=== PATIENT | female | born 1980 | race African-American/Black ===

== ENCOUNTER 2016-11-14 05:09 | Inpatient (IN) | payer OTHER ==
[2016-11-14 09:09] VITALS: BMI 27.7
--- NOTE | 2016-11-14 11:38 | HP ---
Admission [facility] Chief Complaint: REHAB TX FOR CRACK/COCAINE AND ALCOHOL DEPENDENCE Allergies/Adverse Reactions: Allergies Allergy/AdvReac Type Severity Reaction Status Date / Time No Known Allergies Allergy Verified 11/14/16 09:35 History of Present Illness: 36 Y/O AA/FEMALE WITH A HX OF ALCOHOL AND COCAINE DEPENDENCE SEEKING REHAB TX. FIRST TIME HERE. Exam Limitations: No Limitations - Ebola screening Have you traveled outside of the country in the last 21 days: No Have you had contact with anyone from an Ebola affected area: No Have you been sick,other than usual withdrawal symptoms: No Do you have a fever: No - Review of Systems Constitutional: Chills, Night Sweats EENT: reports: Blurred Vision (WEARS GLASSES), Tearing, Nose Congestion, Dental Problems (MISSING TEETH/DENTURES) Respiratory: reports: No Symptoms reported Cardiac: reports: Chest Pain, Lightheadedness GI: reports: Constipated, Rectal Bleeding (HX HEMORRHOIDS) : reports: Frequency, Urgency Musculoskeletal: reports: Muscle Pain, Other (RIGHT THIGH CRAMPING/PAIN) Integumentary: reports: No Symptoms Reported Neuro: reports: Headache, Dizziness Endocrine: reports: No Symptoms Reported Hematology: reports: No Symptoms Reported Psychiatric: reports: Orientated x3, Anxious Other Systems: Reviewed and Negative Patient History - Patient Medical History Hx Anemia: No Hx Asthma: No Hx Chronic Obstructive Pulmonary Disease (COPD): No Hx Cardiac Disorders: No Hx Hypertension: No Hx Hypercholesterolemia: No HX Cerebrovascular Accident: No Hx Seizures: No Hx Diabetes: No Hx Gastrointestinal Disorders: Yes (HX HEMORRHOIDS/CONSTIPATION/RECTAL BLEEDING) Hx Genitourinary Disorders: No Hx Sexually Transmitted Disorders: Yes (SYPHILIS/GONORRHEA) Hx Renal Disease (ESRD): No Hx Thyroid Disease: Yes (TOLD HAS ENLARGED THYROID;NEVER FOLLOWED UP.) Hx Human Immunodeficiency Virus (HIV): No (NEGATIVE HX) Hx Hepatitis C: No Hx Depression: Yes (NO CURRENT MED) Hx Suicide Attempt: No (DENIES) Hx Bipolar Disorder: No Hx Schizophrenia: No - Patient Surgical History Past Surgical History: Yes Hx Section: Yes (X 2 --2000 AND 2002) Hx Orthopedic Surgery: Yes (LEFT WRIST SX WITH SCREWS DUE TO FX AT 31 Y/O.) Other Surgical History: FX SKULL DUE TO FALL TO BRICK WALL AT 31 YRS PLD. Anesthesia Reaction: No - PPD History Previous Implant?: Yes Documented Results: Negative w/o proof Implanted On Prior R Admission?: No PPD to be Administered?: Yes - Reproductive History Patient is a Female of Child Bearing Age (11 -55 yrs old): Yes Last Menstrual Period: 10/21/16 Patient : No - Smoking Cessation Smoking history: Current every day smoker Have you smoked in the past 12 months: Yes Aproximately how many cigarettes per day: 6 Hx Chewing Tobacco Use: No Initiated information on smoking cessation: Yes 'Breaking Loose' booklet given: 11/14/16 - Substance & Tx. History Hx Alcohol Use: Yes (LIQUOR) Hx Substance Use: Yes (COCAINE) Substance Use Type: Alcohol, Cocaine Hx Substance Use Treatment: Yes (OPD TREATMENT IN [place]) - Substances Abused Alcohol Route: Oral Frequency: 1-2 times per week Amount used: 1/2 - 1 PT Age of first use: 34 Date of Last Use: 11/08/16 Crack Route: Smoking Frequency: Daily Amount used: $300 Age of first use: 25 Date of Last Use: 11/14/16 Family Disease History - Family Disease History Family Disease History: Respiratory: Son (ASTHMA), Other: Mother (HTN) Admission Physical Exam BHS - Vital Signs Vital Signs: Vital Signs - 24 hr 11/14/16 09:04 Temperature 98.2 F Pulse Rate 88 Respiratory 20 Rate Blood Pressure 119/71 - Physical General Appearance: Yes: No Apparent Distress, Irritable, Anxious HEENTM: Yes: EOMI, Normocephalic, TONY, Pharynx Normal Respiratory: Yes: Chest Non-Tender, Lungs Clear, Normal Breath Sounds, No Respiratory Distress Neck: Yes: Supple, Trachea in good position Breast: Yes: Breast Exam Deferred Cardiology: Yes: Regular Rhythm, Regular Rate, S1, S2 Abdominal: Yes: Normal Bowel Sounds, Non Tender, Soft Genitourinary: Yes: Other (N/C) Back: Yes: Within Normal Limits Musculoskeletal: Yes: full range of Motion, Gait Steady Extremities: Yes: Normal Range of Motion, Non-Tender Neurological: Yes: pool cleaner II-XII NML intact, Fully Oriented, Alert Integumentary: Yes: Dry, Warm - Diagnostic (1) Cocaine dependence, uncomplicated Current Visit: Yes Status: Chronic (2) Alcohol dependence with uncomplicated withdrawal Current Visit: Yes Status: Chronic (3) Hx of hemorrhoids Current Visit: Yes Status: Chronic (4) History of traumatic injury of head Current Visit: Yes Status: Resolved Cleared for Admission [facility] - Detox or Rehab Claeared for Rehab Admission: Yes [facility] Breath Alcohol Content Breath Alcohol Content: 0 Urine Pregancy Test - Result Urine Test Results: Negative- NO Line Present Urine Drug Screen - Results Drug Screen Negative: No Urine Drug Screen Results: MARIAJOSE-Cocaine, AMP-Amphetamines
[2016-11-14] MEDS ORDERED: diphenhydrAMINE HCL 50 MG CAPSULE PO PRN (11:59)
[2016-11-14] MEDS ORDERED: NICOTINE POLACRILEX 2 MG GUM BUC PRN (11:59)
[2016-11-14] MEDS ORDERED: LOPERAMIDE HCL 2 MG CAPSULE PO PRN (11:59)
[2016-11-14] MEDS ORDERED: guaiFENesin/D-METHORPHAN HB 10 ML UNIT-DOSE CUPS PO PRN (11:59)
[2016-11-14] MEDS ORDERED: hydrOXYzine PAMOATE 25 MG CAPSULE (FP) PO PRN (11:59)
[2016-11-14] MEDS ORDERED: IBUPROFEN 400 MG TABLET (FP) PO PRN (11:59)
[2016-11-14] MEDS ORDERED: ACETAMINOPHEN 325 MG TABLET (FP) PO PRN (11:59)
[2016-11-14] MEDS ORDERED: MAG HYDROX/AL HYDROX/SIMETH 30 ML UNIT-DOSE CUP PO PRN (11:59)
[2016-11-14] MEDS ORDERED: MAGNESIUM HYDROX 2400MG/30ML ORAL SUSPENSION 30 ML CUP PO PRN (11:59)
[2016-11-14] MEDS ORDERED: MENTHOL/PHENOL 1 EACH UD MM PRN (11:59)
[2016-11-14] MEDS ORDERED: P-EPHED 60MG/TRIPROLIDI 2.5MG TABLET PO PRN (11:59)
[2016-11-14] MEDS ORDERED: MAGNESIUM CITRATE 300 ML BOTTLE PO PRN (11:59)
[2016-11-14] MEDS: DOCUSATE SODIUM 100 MG CAPSULE (FP) PO SCH ×2 (14:50→22:12)
[2016-11-14] MEDS: NICOTINE 14 MG/24 HOURS TOPICAL PATCH TD SCH (14:51)
[2016-11-14 14:59] LABS: MCH 27.9 pg (25.7-33.7); MCHC 33.2 g/dl (32.0-36.0); MEAN CELL VOLUME 84.1 fl (80-96); MEAN PLT VOLUME 9.4 fl (7.5-11.1); PLATELET COUNT 119 K/MM3 (134-434); RDW 13.7 % (11.6-15.6); WHITE BLOOD COUNT 3.2 K/mm3 (4.0-10.0)
[2016-11-14 15:21] LABS: ALBUMIN 3.5 g/dl (3.4-5.0); ALK PHOS 68 U/L (45-117); ANION GAP 9 (8-16); BILIRUBIN,TOTAL 0.3 mg/dL (0.2-1.0); CALCIUM 8.8 mg/dL (8.5-10.1); CO2 29 mmol/L (21-32); CREATININE 0.8 mg/dL (0.55-1.02); GLUCOSE,RANDOM 78 mg/dL (74-106); SGOT/AST 19 U/L (15-37); SGPT/ALT 20 U/L (12-78)
--- NOTE | 2016-11-14 16:24 | EKG ---
Test Reason : Blood Pressure : / mmHG Vent. Rate : 071 BPM Atrial Rate : 277 BPM P-R Int : 000 ms QRS Dur : 076 ms QT Int : 342 ms P-R-T Axes : 032 009 -52 degrees QTc Int : 371 ms POOR DATA QUALITY, INTERPRETATION MAY BE ADVERSELY AFFECTED SINUS RHYTHM ABNORMAL ECG Confirmed by KATARZYNA GREENE, KIM ([id number]) on 11/14/2016 4:24:09 PM Referred By: Shweta Brown Confirmed By:KIM COLÓN MD
[2016-11-14 16:40] LABS: URINE APPEARANCE SLCLOUDY; URINE BILIRUBIN NEGATIVE (NEGATIVE); URINE BLOOD NEGATIVE (NEGATIVE); URINE COLOR DKYELLOW; URINE GLUCOSE (UA) NEGATIVE (NEGATIVE); URINE KETONE TRACE (NEGATIVE); URINE NITRITE NEGATIVE (NEGATIVE); URINE UROBILINOGEN NEGATIVE E.U./dl (0.2-1.0)
[2016-11-14 16:43] LABS: URINE LEUK ESTERASE TRACE (NEGATIVE); URINE PROTEIN 1+ (NEGATIVE)
[2016-11-14] MEDS: POTASSIUM CHLORIDE TABS 20 MEQ TABLET.ER (FP) PO SCH ×2 (17:14→22:12)
[2016-11-14 18:04] LABS: URINE BACTERIA FEW /hpf (NONE SEEN); URINE MUCUS MANY; URINE RBC 1 /hpf (0-3); URINE WBC 11 /hpf (3-5)
[2016-11-14] MEDS: THIAMINE HCL 100 MG TABLET (FP) PO SCH (22:13)
[2016-11-15] MEDS: DOCUSATE SODIUM 100 MG CAPSULE (FP) PO SCH ×3 (06:50→22:04)
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
[2016-11-15] MEDS: PRENATAL VITAMINS W/ FOLIC ACID TABLET (FP) PO SCH (10:01)
[2016-11-15] MEDS: NICOTINE 14 MG/24 HOURS TOPICAL PATCH TD SCH (10:02)
[2016-11-15 14:55] LABS: HIV 1 AGp24 NEGATIVE
[2016-11-15 15:12] LABS: HIV 1 & 2 AB PRELIMINARY POSITIVE
--- NOTE | 2016-11-15 15:20 | EKG ---
Test Reason : Blood Pressure : / mmHG Vent. Rate : 078 BPM Atrial Rate : 078 BPM P-R Int : 176 ms QRS Dur : 078 ms QT Int : 368 ms P-R-T Axes : 022 003 -09 degrees QTc Int : 419 ms NORMAL SINUS RHYTHM SEPTAL INFARCT , AGE UNDETERMINED POOR R WAVE PROGRESSION NONSPECIFIC ST ABNORMALITY ABNORMAL ECG WHEN COMPARED WITH ECG OF 14-NOV-2016 15:14, NO SIGNIFICANT CHANGE WAS FOUND Confirmed by TALAT FRANK MD ([id number]) on 11/15/2016 3:19:45 PM Referred By: Shweta Brown Confirmed By:TALAT FRANK MD
[2016-11-15] MEDS: POTASSIUM CHLORIDE TABS 20 MEQ TABLET.ER (FP) PO SCH (17:47)
[2016-11-15] MEDS: THIAMINE HCL 100 MG TABLET (FP) PO SCH (22:04)
[2016-11-15] MEDS: traZODone HCL 100 MG TABLET (FP) PO SCH (22:05)
[2016-11-15] MEDS ORDERED: POTASSIUM CHLORIDE ORAL LIQUID 20 MEQ/15 ML PO SCH (22:45)
--- NOTE | 2016-11-15 22:50 | PN ---
[facility] Progress Note Note: RECEIVED PHARMACIST CALL PATIENT HAD TWO DOSES OF k+ SUPPLEMENT FOR 2.9 k+ ORDER k+ SUPPLEMENT LIQUID 20 MEQ BID X 5 DAYS REPEAT LAB IN 6TH DAY CONTINUE REHAB
[2016-11-16] MEDS: DOCUSATE SODIUM 100 MG CAPSULE (FP) PO SCH ×3 (06:26→22:15)
[2016-11-16] MEDS: PRENATAL VITAMINS W/ FOLIC ACID TABLET (FP) PO SCH (10:03)
[2016-11-16] MEDS: NICOTINE 14 MG/24 HOURS TOPICAL PATCH TD SCH (10:04)
[2016-11-16] MEDS: POTASSIUM CHLORIDE ORAL LIQUID 20 MEQ/15 ML PO SCH ×2 (10:31→22:16)
[2016-11-16] MEDS ORDERED: PT OWN MED DRAWER 7, Y5N ONE ×2 (14:16→19:35)
[2016-11-16] MEDS: traZODone HCL 100 MG TABLET (FP) PO SCH (22:15)
[2016-11-16] MEDS: THIAMINE HCL 100 MG TABLET (FP) PO SCH (22:16)
[2016-11-17] MEDS: DOCUSATE SODIUM 100 MG CAPSULE (FP) PO SCH ×2 (06:31→13:23)
[2016-11-17 06:48] VITALS: BP 147/80; PULSE 79; TEMP 98.6
[2016-11-17] MEDS: NICOTINE 14 MG/24 HOURS TOPICAL PATCH TD SCH (09:57)
[2016-11-17] MEDS: PRENATAL VITAMINS W/ FOLIC ACID TABLET (FP) PO SCH (09:57)
[2016-11-17] MEDS: POTASSIUM CHLORIDE ORAL LIQUID 20 MEQ/15 ML PO SCH (09:57)
--- NOTE | 2016-11-17 19:27 | PN ---
S Progress Note Note: called by nurse stated patient did not want to complete treatment due to personal emergency about her apartment,did not want to wait,seen by counselor on the unit stated by nurse,signed release amsumaya,psychiatrist midwife practitioner notified by nurse,nursing lubrication supervisor called by unit nurse
== END 2016-11-17 18:05 | disposition left against medical advice (07) | DRG 770 ==
LOC: YASAS 05:09 → Y3W 11:17
PROVIDERS: ADMIT Psychiatry & Neurology Psychiatry; ATTEND Psychiatry & Neurology Psychiatry
PROC: HZ42ZZZ Group Counseling for Substance Abuse Treatment, Cognitive-Behavioral (ICD-10-PCS; principal; 2016-11-17)
DX: F10.230 Alcohol dependence with withdrawal, uncomplicated (principal); F14.20 Cocaine dependence, uncomplicated; F17.210 Nicotine dependence, cigarettes, uncomplicated; F19.24 Other psychoactive substance dependence with psychoactive substance-induced mood disorder; K64.8 Other hemorrhoids; Z87.828 Personal history of other (healed) physical injury and trauma
CPT/HCPCS: 36415; 80053; 81003; 81015; 85027; 85660; 86593; 87389; 93005; 93010

== ENCOUNTER 2017-06-10 18:43 | Inpatient (IN) | payer OTHER ==
[2017-06-10 20:56] VITALS: BMI 25.9
--- NOTE | 2017-06-10 21:43 | HP ---
CIWA Score - CIWA Score Nausea/Vomitin-Mild Nausea/No Vomiting Muscle Tremors: 2 Anxiety: 3 Agitation: 3 Paroxysmal Sweats: 2 Orientation: 1-Uncertain about Date Tacttile Disturbances: 1-Very Mild Itch/Numbness Auditory Disturbances: 1-Very Mild Visual Disturbances: 1-Very Mild Sensitivity Headache: 0-None Present CIWA-Ar Total Score: 15 Admission ROS BHS - HPI Chief Complaint: WITHDRAWAL SYMPTOMS Allergies/Adverse Reactions: Allergies Allergy/AdvReac Type Severity Reaction Status Date / Time No Known Allergies Allergy Verified 11/14/16 09:35 History of Present Illness: 37 Y.O. FEMALE WITH DRUG AND ALCOHOL DEPENDENCE IS HERE SEEKING DETOX. SHE REPORTS SHE HAS NEVER BEEN TO DETOX BUT DID GO TO REHAB IN 11/14/16, HOWEVER SHE LEFT AMA AFTER TWO DAYS. LONGEST PERIOD SOBER HAS BEEN 5 YEARS AND STATES HE RELAPSED 1 YEAR AGO. Exam Limitations: No Limitations - Ebola screening Have you traveled outside of the country in the last 21 days: No (N) Have you had contact with anyone from an Ebola affected area: No Have you been sick,other than usual withdrawal symptoms: No Do you have a fever: No - Review of Systems Constitutional: Chills, Loss of Appetite, Night Sweats, Changes in sleep EENT: reports: Tearing Respiratory: reports: Cough Cardiac: reports: No Symptoms Reported GI: reports: Rectal Bleeding (H/O Hemorrhoid) : reports: No Symptoms Reported Musculoskeletal: reports: Joint Pain Integumentary: reports: No Symptoms Reported Neuro: reports: No Symptoms reported Endocrine: reports: No Symptoms Reported Hematology: reports: No Symptoms Reported Psychiatric: reports: Mood/Affect Appropiate, Anxious, Depressed Other Systems: Reviewed and Negative Patient History - Patient Medical History Hx Anemia: No Hx Asthma: No Hx Chronic Obstructive Pulmonary Disease (COPD): No Hx Cancer: No Hx Cardiac Disorders: No Hx Congestive Heart Failure: No Hx Hypertension: No Hx Hypercholesterolemia: No Hx Pacemaker: No HX Cerebrovascular Accident: No Hx Seizures: No Hx Dementia: No Hx Diabetes: No Hx Gastrointestinal Disorders: No Hx Liver Disease: No Hx Genitourinary Disorders: No Hx Sexually Transmitted Disorders: No Hx Renal Disease (ESRD): No Hx Thyroid Disease: Yes (TOLD HAS ENLARGED THYROID;NEVER FOLLOWED UP.) Hx Human Immunodeficiency Virus (HIV): Yes (DX: 2017) Hx Hepatitis C: No Hx Depression: Yes Hx Suicide Attempt: Yes (H/O SI ) Hx Bipolar Disorder: No Hx Schizophrenia: No - Patient Surgical History Past Surgical History: Yes Hx Section: Yes (X 2 --2000 AND 2002) Hx Orthopedic Surgery: Yes (LEFT WRIST SX WITH SCREWS DUE TO FX AT 31 Y/O.) Other Surgical History: FX SKULL DUE TO FALL TO BRICK WALL AT 31 YRS PLD. Anesthesia Reaction: No - PPD History Previous Implant?: Yes Documented Results: Negative w/proof Implanted On Prior R Admission?: Yes Date: 11/16/16 PPD to be Administered?: No - Reproductive History Patient is a Female of Child Bearing Age (11 -55 yrs old): Yes Last Menstrual Period: 05/16/17 Patient : No - Smoking Cessation Smoking history: Current every day smoker Have you smoked in the past 12 months: Yes Aproximately how many cigarettes per day: 6 Hx Chewing Tobacco Use: No Initiated information on smoking cessation: Yes 'Breaking Loose' booklet given: 06/10/17 - Substance & Tx. History Hx Alcohol Use: Yes Hx Substance Use: Yes Substance Use Type: Alcohol, Cocaine Hx Substance Use Treatment: Yes (REHAB: 11/2016; NEVER BEEN TO DETOX ) - Substances Abused Alcohol Route: Oral Frequency: Daily Amount used: 20 CANS OF 20 OZ OF BEER; 1 PINT OF LIQUOR Age of first use: 15 Date of Last Use: 06/10/17 Cocaine Route: Smoking Frequency: 3-6 times per week Amount used: $500 Age of first use: 29 Date of Last Use: 06/10/17 Family Disease History - Family Disease History Family Disease History: Heart Disease: Mother (HTN, stroke), Respiratory: Son ( ASTHMA), Other: Mother, Brother (HIV) Admission Physical Exam BHS - Vital Signs Vital Signs: Vital Signs - 24 hr 06/10/17 20:51 Temperature 96.7 F L Pulse Rate 103 H Respiratory 18 Rate Blood Pressure 120/59 - Physical General Appearance: Yes: Disheveled, Alcohol on Breath, Sweating, Anxious HEENTM: Yes: Hearing grossly Normal, Normocephalic, Normal Voice Respiratory: Yes: Chest Non-Tender, Lungs Clear, Normal Breath Sounds, No Respiratory Distress, No Accessory Muscle Use Neck: Yes: No masses,lesions,Nodules, Trachea in good position Breast: Yes: Breast Exam Deferred Cardiology: Yes: Regular Rhythm, Tachycardia Abdominal: Yes: Normal Bowel Sounds, Non Tender, Flat, Soft Genitourinary: Yes: Vaginal Discharge Back: Yes: Normal Inspection Musculoskeletal: Yes: Back pain Extremities: Yes: Normal Capillary Refill, Normal Inspection, Normal Range of Motion, Non-Tender Neurological: Yes: Alert, Motor Strength 5/5, Normal Mood/Affect, Normal Response Integumentary: Yes: Rash Lymphatic: Yes: Within Normal Limits - Diagnostic (1) Human immunodeficiency virus (HIV) disease Current Visit: Yes Status: Chronic Comment: 12/05/16 - pt left w/o being seen -on [place], [place] 1 tab po daily; discussed medical sales consultant, se, and ae, adherence , benefits/goals of tx, reporting se/ae of meds, safe sex, condom use, importance of f/u and monitoring -CD4 < 200 - plan to start bactrim ds 3 x wk - pt recently started psych meds, starting ARV now, and tx for trich - will start bactrim next visit to ensure tolerating current meds (2) Nicotine dependence Current Visit: Yes Status: Chronic Comment: brief discussion of smoking cessation; f/u next visit (3) Alcohol dependence with uncomplicated withdrawal Current Visit: Yes Status: Chronic (4) Cocaine dependence, uncomplicated Current Visit: Yes Status: Chronic Comment: continue f/u in [place] (5) Hx of hemorrhoids Current Visit: Yes Status: Chronic Comment: abnormal rectal exam - f/u next visit, colon/rectal referral (6) Pruritic rash Current Visit: Yes Status: Acute Cleared for Admission [facility] - Detox or Rehab [facility] Level of Care: Medically Managed Detox Regimen/Protocol: Librium [facility] Breath Alcohol Content Breath Alcohol Content: 0.072 Urine Pregancy Test - Result Urine Test Results: Negative- NO Line Present Urine Drug Screen - Results Drug Screen Negative: No Urine Drug Screen Results: MARIAJOSE-Cocaine
[2017-06-10] MEDS ORDERED: guaiFENesin/D-METHORPHAN HB 10 ML UNIT-DOSE CUPS PO PRN (22:06)
[2017-06-10] MEDS ORDERED: P-EPHED 60MG/TRIPROLIDI 2.5MG TABLET PO PRN (22:06)
[2017-06-10] MEDS ORDERED: NICOTINE POLACRILEX 2 MG GUM BC PRN (22:06)
[2017-06-10] MEDS ORDERED: chlordiazePOXIDE HCL 25 MG CAPSULE PO ONE (22:06)
[2017-06-10] MEDS ORDERED: MENTHOL/PHENOL 1 EACH UD MM PRN (22:06)
[2017-06-10] MEDS ORDERED: MAGNESIUM CITRATE 300 ML BOTTLE PO PRN (22:06)
[2017-06-10] MEDS ORDERED: diphenhydrAMINE HCL 50 MG CAPSULE PO PRN (22:06)
[2017-06-10] MEDS ORDERED: MAG HYDROX/AL HYDROX/SIMETH 30 ML UNIT-DOSE CUP PO PRN (22:06)
[2017-06-10] MEDS ORDERED: IBUPROFEN 400 MG TABLET (FP) PO PRN (22:06)
[2017-06-10] MEDS ORDERED: LOPERAMIDE HCL 2 MG CAPSULE PO PRN (22:06)
[2017-06-10] MEDS ORDERED: MAGNESIUM HYDROX 2400MG/30ML ORAL SUSPENSION 30 ML CUP PO PRN (22:06)
[2017-06-10] MEDS ORDERED: ACETAMINOPHEN 325 MG TABLET (FP) PO PRN (22:06)
[2017-06-10] MEDS ORDERED: hydrOXYzine PAMOATE 50 MG CAPSULE (FP) PO PRN (22:06)
[2017-06-10] MEDS ORDERED: PERMETHRIN 5% TOPICAL CREAM 60 GM TUBE TP ONE (22:14)
[2017-06-10] MEDS ORDERED: WITCH HAZEL 50% (TUCKS) 40 PAD/JAR PAD TP PRN (22:38)
[2017-06-11 01:35] LABS: URINE APPEARANCE CLOUDY; URINE BILIRUBIN NEGATIVE (NEGATIVE); URINE BLOOD 1+ (NEGATIVE); URINE COLOR YELLOW; URINE GLUCOSE (UA) NEGATIVE (NEGATIVE); URINE KETONE NEGATIVE (NEGATIVE); URINE NITRITE NEGATIVE (NEGATIVE); URINE PROTEIN NEGATIVE (NEGATIVE); URINE UROBILINOGEN NEGATIVE mg/dL (0.2-1.0)
[2017-06-11 01:38] LABS: URINE LEUK ESTERASE 3+ (NEGATIVE)
[2017-06-11 01:45] LABS: URINE BACTERIA MODERATE /hpf (NONE SEEN); URINE MUCUS RARE; URINE RBC 11 /hpf (0-3); URINE WBC 51 /hpf (3-5)
[2017-06-11] MEDS: chlordiazePOXIDE HCL 25 MG CAPSULE PO SCH ×5 (05:27→22:43)
[2017-06-11] MEDS ORDERED: ZOLPIDEM TARTRATE 5 MG TABLET PO PRN (07:54)
--- NOTE | 2017-06-11 07:59 | CONSULT ---
[facility] Psychiatric Consult - Data Date of interview: 06/11/17 Admission source: [facility] Identifying data: This is 37 years old female with no psychiatric hospitalization history intoxicated with : Alcohol and Cocaine Substance Abuse History: Urine Drug Screen Results: MARIAJOSE-Cocaine. - Smoking Cessation. Smoking history: Current every day smoker. Have you smoked in the past 12 months: Yes. Aproximately how many cigarettes per day: 6. Hx Chewing Tobacco Use: No. Initiated information on smoking cessation: Yes. 'Breaking Loose' booklet given: 06/10/17. - Substance & Tx. History. Hx Alcohol Use: Yes. Hx Substance Use: Yes. Substance Use Type: Alcohol, Cocaine. Hx Substance Use Treatment: Yes (REHAB: 11/2016; NEVER BEEN TO DETOX ). - Substances Abused. Alcohol. Route: Oral. Frequency: Daily. Amount used: 20 CANS OF 20 OZ OF BEER; 1 PINT OF LIQUOR. Age of first use: 15. Date of Last Use: 06/10/17. Cocaine. Route: Smoking. Frequency: 3-6 times per week. Amount used: $500. Age of first use: 29. Date of Last Use: 06/10/17 Medical History: HIV, Hemorrhoids history, Head trauma history Psychiatric History: Patoent reprots history of anxiety and insomnia, reprots taking prior to admission: Ambien 10mg pom qhs. Zoloft 100mg poqd Physical/Sexual Abuse/Trauma History: Ambien 10mg pom qhs. Zoloft 100mg poqd Additional Comment: Urine Drug Screen Results: MARIAJOSE-Cocaine Mental Status Exam - Mental Status Exam Alert and Oriented to: Person Cognitive Function: Fair Patient Appearance: Unkempt Mood: Sad Affect: Flat Patient Behavior: Talkative Speech Pattern: Appropriate Voice Loudness: Normal Thought Process: Goal Oriented Thought Disorder: Being Controlled Hallucinations: Denies Suicidal Ideation: Denies Homicidal Ideation: Denies Insight/Judgement: Fair Sleep: Difficulty falling asleep Appetite: Weight loss Muscle strength/Tone: Mild Hypotonicity Gait/Station: Shuffling Additional Comments: Ambien 10mg pom qhs. Zoloft 100mg poqd Psychiatric Findings - Problem List ([place] 1, 2,3) (1) Alcohol dependence with uncomplicated withdrawal Current Visit: Yes Status: Chronic (2) Cocaine dependence, uncomplicated Current Visit: Yes Status: Chronic Comment: continue f/u in [place] (3) Nicotine dependence Current Visit: Yes Status: Chronic Comment: brief discussion of smoking cessation; f/u next visit (4) Drug-induced mood disorder Current Visit: Yes Status: Acute - Initial Treatment Plan Initial Treatment Plan: Ambien 10mg pom qhs. Zoloft 100mg poqd
--- NOTE | 2017-06-11 09:54 | EKG ---
Test Reason : Blood Pressure : / mmHG Vent. Rate : 087 BPM Atrial Rate : 087 BPM P-R Int : 178 ms QRS Dur : 068 ms QT Int : 392 ms P-R-T Axes : 067 020 023 degrees QTc Int : 471 ms NORMAL SINUS RHYTHM LOW VOLTAGE QRS SEPTAL INFARCT (CITED ON OR BEFORE 14-NOV-2016) ABNORMAL ECG WHEN COMPARED WITH ECG OF 14-NOV-2016 21:17, NONSPECIFIC T WAVE ABNORMALITY, IMPROVED IN INFERIOR LEADS NONSPECIFIC T WAVE ABNORMALITY NO LONGER EVIDENT IN LATERAL LEADS QT HAS LENGTHENED Confirmed by MANJEET GREENE, CONCHIS ([id number]) on 06/11/2017 9:53:35 AM Referred By: Confirmed By:CONCHIS BURROUGHS MD
[2017-06-11 10:05] LABS: MCH 26.2 pg (25.7-33.7); MCHC 32.3 g/dl (32.0-36.0); MEAN CELL VOLUME 81.2 fl (80-96); MEAN PLT VOLUME 9.2 fl (7.5-11.1); PLATELET COUNT 114 K/MM3 (134-434); RDW 15.4 % (11.6-15.6)
[2017-06-11 10:14] LABS: WHITE BLOOD COUNT 1.8 K/mm3 (4.0-10.0)
[2017-06-11] MEDS: NICOTINE 14 MG/24 HOURS TOPICAL PATCH TD SCH (10:19)
[2017-06-11] MEDS: PRENATAL VITAMINS W/ FOLIC ACID TABLET (FP) PO SCH (10:19)
[2017-06-11] MEDS: SERTRALINE HCL 50 MG TABLET (FP) PO SCH (10:19)
--- NOTE | 2017-06-11 10:25 | PN ---
[facility] CIWA - CIWA Score Nausea/Vomitin Muscle Tremors: 3 Anxiety: 3 Agitation: 2 Paroxysmal Sweats: 1-Minimal Palms Moist Orientation: 0-Oriented Tacttile Disturbances: 1-Very Mild Itch/Numbness Auditory Disturbances: 1-Very Mild Visual Disturbances: 1-Very Mild Sensitivity Headache: 2-Mild CIWA-Ar Total Score: 17 BHS Progress Note (SOAP) Subjective: ALERT,IRRITABLE,ANXIOUS,INTERRUPTED SLEEP,TREMOR Objective: 06/11/17 10:20 Vital Signs Temperature 99.7 F H 06/11/17 06:10 Pulse Rate 87 06/11/17 06:10 Respiratory Rate 18 06/11/17 06:10 Blood Pressure 125/65 06/11/17 06:10 O2 Sat by Pulse Oximetry (%) EKG NSR,LOW VOLTAGE NO CHEST PAIN,NO SOB,NO DIZZINESS Laboratory Last Values WBC 1.8 K/mm3 (4.0-10.0) L* D 06/11/17 07:00 RBC 3.80 M/mm3 (3.60-5.2) 06/11/17 07:00 Hgb 10.0 GM/dL (10.7-15.3) L D 06/11/17 07:00 Hct 30.9 % (32.4-45.2) L D 06/11/17 07:00 MCV 81.2 fl (80-96) 06/11/17 07:00 MCH 26.2 pg (25.7-33.7) 06/11/17 07:00 MCHC 32.3 g/dl (32.0-36.0) 06/11/17 07:00 RDW 15.4 % (11.6-15.6) D 06/11/17 07:00 Plt Count 114 K/MM3 (134-434) L D 06/11/17 07:00 MPV 9.2 fl (7.5-11.1) 06/11/17 07:00 Urine Color Yellow 06/10/17 23:22 Urine Appearance Cloudy 06/10/17 23:22 Urine pH 6.0 (5.0-8.0) 06/10/17 23:22 Ur Specific [place] 1.010 (1.005-1.025) 06/10/17 23:22 Urine Protein Negative (NEGATIVE) 06/10/17 23:22 Urine Glucose (UA) Negative (NEGATIVE) 06/10/17 23:22 Urine Ketones Negative (NEGATIVE) 06/10/17 23:22 Urine Blood 1+ (NEGATIVE) H 06/10/17 23:22 Urine Nitrite Negative (NEGATIVE) 06/10/17 23:22 Urine Bilirubin Negative (NEGATIVE) 06/10/17 23:22 Urine Urobilinogen Negative mg/dL (0.2-1.0) 06/10/17 23:22 Urine RBC 11 /hpf (0-3) 06/10/17 23:22 Urine WBC 51 /hpf (3-5) 06/10/17 23:22 Ur Epithelial Cells Many /hpf (FEW) 06/10/17 23:22 Urine Bacteria Moderate /hpf (NONE SEEN) 06/10/17 23:22 Urine Mucus Rare 06/10/17 23:22 LABS PENDING Assessment: 06/11/17 10:23 WITHDRAWAL SYMPTOM Plan: CONTINUE DETOX,PANCYTOPENIA PROBABLY RELATED TO HIV AND ALCOHOL DEPENDENCE WILL REPEAT CBC IN AM FERROUS SULFATE 325 MGS PO BID,ENSURE, REPEAT UA TODAY,ENCOURAGE ORAL FLUID
[2017-06-11] MEDS: ABACAVIR SULFATE 300 MG TABLET PO SCH (11:00)
[2017-06-11] MEDS: FERROUS SO4 325 MG TABLET (FP) PO SCH ×2 (11:00→22:43)
[2017-06-11 11:04] LABS: ALBUMIN 2.7 g/dl (3.4-5.0); ALK PHOS 61 U/L (45-117); ANION GAP 9 (8-16); BILIRUBIN,TOTAL 0.7 mg/dL (0.2-1.0); CALCIUM 8.3 mg/dL (8.5-10.1); CO2 27 mmol/L (21-32); CREATININE 0.7 mg/dL (0.55-1.02); GLUCOSE,RANDOM 86 mg/dL (74-106); SGOT/AST 56 U/L (15-37); SGPT/ALT 55 U/L (12-78); TOT PROT 6.3 g/dl (6.4-8.2)
[2017-06-11 13:08] LABS: PLATELET ESTIMATE DECREASED (NORMAL)
[2017-06-11 13:09] LABS: TOTAL CELLS COUNTED 100
[2017-06-11] MEDS ORDERED: ONDANSETRON *ODT* 4 MG TABLET SL ONE (18:00)
[2017-06-11] MEDS: chlordiazePOXIDE HCL 25 MG CAPSULE PO PRN (18:53)
[2017-06-11] MEDS ORDERED: ZOLPIDEM TARTRATE 10 MG TABLET (PARK CARE ONLY) PO PRN (22:00)
[2017-06-11] MEDS: THIAMINE HCL 100 MG TABLET (FP) PO SCH (22:43)
[2017-06-12] MEDS: chlordiazePOXIDE HCL 25 MG CAPSULE PO SCH ×3 (06:40→17:46)
[2017-06-12 09:55] LABS: MCH 26.1 pg (25.7-33.7); MCHC 32.2 g/dl (32.0-36.0); MEAN CELL VOLUME 80.9 fl (80-96); MEAN PLT VOLUME 9.2 fl (7.5-11.1); PLATELET COUNT 116 K/MM3 (134-434); RDW 15.1 % (11.6-15.6)
--- NOTE | 2017-06-12 09:58 | PN ---
S CIWA - CIWA Score Nausea/Vomitin Muscle Tremors: 3 Anxiety: 3 Agitation: 2 Paroxysmal Sweats: 1-Minimal Palms Moist Orientation: 0-Oriented Tacttile Disturbances: 1-Very Mild Itch/Numbness Auditory Disturbances: 1-Very Mild Visual Disturbances: 0-None Headache: 2-Mild CIWA-Ar Total Score: 16 BHS Progress Note (SOAP) Subjective: ALERT,IRRITABLE,ANXIOUS,FEEL DEPRESS,INTERRUPTED SLEEP,ITCHING RASH Objective: 06/12/17 09:55 Vital Signs Temperature 98.1 F 06/12/17 06:21 Pulse Rate 75 06/12/17 06:21 Respiratory Rate 16 06/12/17 06:21 Blood Pressure 115/69 06/12/17 06:21 O2 Sat by Pulse Oximetry (%) Assessment: 06/12/17 09:56 WITHDRAWAL SYMPTOM Plan: CONTINUE DETOX,REPEAT CBC PENDING,AVEENO SOAP,LIDEX OINTMENT BID,PSYCHIATRIC EVALUATION FOR DEPRESSION
[2017-06-12] MEDS ORDERED: COLLOIDAL OATMEAL 1 BAR EACH TP PRN (09:59)
[2017-06-12] MEDS ORDERED: FLUOCINONIDE 0.05% TOP OINT (60 GM TUBE) TP SCH (10:00)
[2017-06-12 10:02] LABS: WHITE BLOOD COUNT 1.5 K/mm3 (4.0-10.0)
[2017-06-12] MEDS: ABACAVIR SULFATE 300 MG TABLET PO SCH (10:13)
[2017-06-12] MEDS: PRENATAL VITAMINS W/ FOLIC ACID TABLET (FP) PO SCH (10:13)
[2017-06-12] MEDS: SERTRALINE HCL 50 MG TABLET (FP) PO SCH (10:13)
[2017-06-12] MEDS: FERROUS SO4 325 MG TABLET (FP) PO SCH ×2 (10:13→22:10)
[2017-06-12] MEDS: FLUOCINONIDE 0.05% TOP OINT (15 GM TUBE) TP SCH ×2 (11:42→22:09)
[2017-06-12] MEDS: NICOTINE 14 MG/24 HOURS TOPICAL PATCH TD SCH (11:45)
[2017-06-12] MEDS: chlordiazePOXIDE 5 MG CAPSULE PO SCH (22:10)
[2017-06-12] MEDS: THIAMINE HCL 100 MG TABLET (FP) PO SCH (22:10)
[2017-06-13 00:18] LABS: URINE APPEARANCE SLCLOUDY; URINE BILIRUBIN NEGATIVE (NEGATIVE); URINE BLOOD NEGATIVE (NEGATIVE); URINE COLOR LTYELLOW; URINE GLUCOSE (UA) NEGATIVE (NEGATIVE); URINE KETONE NEGATIVE (NEGATIVE); URINE LEUK ESTERASE NEGATIVE (NEGATIVE); URINE NITRITE NEGATIVE (NEGATIVE); URINE PROTEIN NEGATIVE (NEGATIVE); URINE UROBILINOGEN NEGATIVE mg/dL (0.2-1.0)
[2017-06-13] MEDS: chlordiazePOXIDE 5 MG CAPSULE PO SCH ×3 (05:01→17:31)
[2017-06-13] MEDS: NICOTINE 14 MG/24 HOURS TOPICAL PATCH TD SCH (10:00)
[2017-06-13] MEDS: FLUOCINONIDE 0.05% TOP OINT (15 GM TUBE) TP SCH ×2 (10:00→23:08)
--- NOTE | 2017-06-13 10:02 | PN ---
S Progress Note (SOAP) Subjective: alert,irritable,anxious,interrupted sleep Objective: 06/13/17 10:01 Vital Signs Temperature 98.1 F 06/13/17 06:00 Pulse Rate 74 06/13/17 06:00 Respiratory Rate 18 06/13/17 06:00 Blood Pressure 119/70 06/13/17 06:00 O2 Sat by Pulse Oximetry (%) Assessment: 06/13/17 10:01 withdrawal symptom Plan: continue detox,discharge in am
[2017-06-13] MEDS: SERTRALINE HCL 50 MG TABLET (FP) PO SCH (14:51)
[2017-06-13] MEDS: PRENATAL VITAMINS W/ FOLIC ACID TABLET (FP) PO SCH (14:51)
[2017-06-13] MEDS: FERROUS SO4 325 MG TABLET (FP) PO SCH ×2 (14:52→23:07)
[2017-06-13] MEDS: ABACAVIR SULFATE 300 MG TABLET PO SCH (14:52)
[2017-06-13] MEDS: chlordiazePOXIDE HCL 25 MG CAPSULE PO PRN (14:54)
--- NOTE | 2017-06-13 17:35 | PN ---
Psychiatric Progress Note Vital Signs: Vital Signs Period Temp Pulse Resp BP Sys/[place] Pulse Ox Last 24 Hr 96.3 F-98.4 F 74-105 18-20 110-125/60-74 Date of Session: 06/13/17 Chief Complaint:: " I want to kill myself.Nobody is helping me." HPI: Day 4 of detox treatment for alcohol and cocaine dependence.Hospital course was uneventful until the patient got informed of her imminent discharge ( scheduled for 06/14/17).Became symptomatic for suicidal ideation with plan to overdose with medications,persecutory delusions (people are plotting to harm her ) and overwhelming anxiety.These complaints have suddenly appeared after the disposition meeting with the social sciences chair (patient is reportedly NOT satisfied with proposed referrals). ROS: Patient is ambulatory,cognitively intact and visible on the unit.No somatic complaints offered.Normal vitals. Current Medications: Active Medications Generic Name Dose Route Start Last Admin Trade Name Freq PRN Reason Stop Dose Admin Abacavir Sulfate 600 mg 06/11/17 10:00 06/13/17 14:52 Ziagen - PO 600 mg DAILY DENA Administration Acetaminophen 650 mg 06/10/17 22:06 Tylenol - PO Q4H PRN FEVER OR PAIN Al Hydroxide/Mg Hydroxide 30 ml 06/10/17 22:06 Mylanta Oral Suspension - PO Q6H PRN DYSPEPSIA Chlordiazepoxide HCl 10 mg 06/13/17 23:00 Librium - PO 06/14/17 17:01 [id number] DENA Chlordiazepoxide HCl 25 mg 06/10/17 22:06 06/13/17 14:54 Librium - PO 06/13/17 22:05 25 mg Q4H PRN Administration WITHDRAWAL(CONT SUBST) Colloidal Oatmeal 1 applic 06/12/17 09:59 06/12/17 11:42 Aveeno Soap - TP 1 applic DAILY PRN Administration HYGEINE Diphenhydramine HCl 50 mg 06/10/17 22:06 06/10/17 23:57 Benadryl - PO 50 mg [id number] PRN Administration INSOMNIA Eucalyptus/Menthol/Phenol/Sorbitol 1 each 06/10/17 22:06 Cepastat Lozenge - MM Q4H PRN SORE THROAT Ferrous Sulfate 325 mg 06/11/17 10:30 06/13/17 14:52 Feosol - PO 325 mg BID DENA Administration Fluocinonide 1 applic 06/12/17 10:00 06/13/17 10:00 Lidex 0.05% Ointment - TP Not Given BID DENA Guaifenesin 10 ml 06/10/17 22:06 Robitussin Dm - PO Q6H PRN COUGH Hydroxyzine Pamoate 50 mg 06/10/17 22:06 Vistaril - PO Q4H PRN AGITATION Ibuprofen 400 mg 06/10/17 22:06 Motrin - PO Q6H PRN SEVERE PAIN Lamivudine 300 mg 06/11/17 10:00 06/13/17 14:52 Epivir - PO 300 mg DAILY DENA Administration Loperamide HCl 4 mg 06/10/17 22:06 Imodium - PO Q6H PRN DIARRHEA Magnesium Citrate 300 ml 06/10/17 22:06 Citroma - PO Q48H PRN CONSTIPATION Magnesium Hydroxide 30 ml 06/10/17 22:06 Milk Of Magnesia - PO DAILY PRN CONSTIPATION Nicotine 14 mg 06/11/17 10:00 06/13/17 10:00 Nicoderm Patch - TD Not Given DAILY DENA Nicotine Polacrilex 2 mg 06/10/17 22:06 Nicorette Gum - BC Q2H PRN NICOTINE REPLACEMENT RX Multivit/Folic Acid/Iron 1 tab 06/11/17 10:00 06/13/17 14:51 Vitamins (Sjr) - PO 1 tab DAILY DENA Administration Pseudoephedrine/Triprolidine 1 combo 06/10/17 22:06 Actifed - PO TID PRN NASAL CONGESTION Sertraline HCl 100 mg 06/11/17 10:00 06/13/17 14:51 Zoloft - PO 100 mg DAILY DENA Administration Thiamine HCl 100 mg 06/11/17 22:00 06/12/17 22:10 Vitamin B1 - PO 100 mg HS DENA Administration Witch Gregoria/Glycerin 1 pad 06/10/17 22:38 Tucks Pads - TP PRN PRN PAIN Zinc Acetate/Diphenhydramine 1 applic 06/11/17 10:00 06/13/17 10:00 Benadryl 2% Cream TP Not Given BID EDNA Zolpidem Tartrate 10 mg 06/11/17 22:00 09/28/17 22:11 Ambien - PO 06/14/17 21:59 10 mg HS PRN Administration Medication(s) Change(s): No changes deemed necessary at this time. Current Side Effect: No Lab tests ordered: No Lab tests reviewed: Yes Provider note:: Called to re-evaluate this patient who claimed paranoid ideation ,vague auditory hallucinations with suicidal commands,intense anxiety and depressed mood.Chart reviewed.Previous records are revisited.Dr Garcia's note is appreciated.Case discussed with nursing staff.Patient is interviewed at bedside.Noted as easily irritable,hostile,argumentative and manipulative.Potentially unpredictable as evidenced by her attempt to cut her wrist with plastic knife in full view of staff (while on 1:1 observation).Ms Lemons states to this underwriter that she does not want to return to case address.Claims to be " bothered with voices " and feeling " afraid of the world outside." This patient cannot be trusted for further management at [facility].She is at risk for self harm.Attempt to self-mutilate in the presence of staff,while under constant observation,is a clear signal of fragile impulse control and immediate dangerosity.EMS is to be activated for transfer of this patient to the psychiatric emergency department at Health system ( if escalation).Search for hospital bed : pending.Nursing staff is made aware of this disposition plan.In the meantime,the patient is kept under 1:1 Constant Observation for safety. Total face to face time:: 70 Mental Status Exam - Mental Status Exam Alert and Oriented to: Time, Place, Person Cognitive Function: Good Patient Appearance: Well Groomed Mood: Angry, Hostile (toward staff), Anxious, Irritable Affect: Mood Congruent Patient Behavior: Impulsive, Agitated (manipulative,argumentative,self-entitled : expects social sciences chair to find an inpatient rehab program suitable to her wishes or housing,regardless of availability of resources.) Speech Pattern: Clear Voice Loudness: Normal Thought Process: Goal Oriented Thought Disorder: Not Present Hallucinations: Auditory (vague;content not clearly defined by patient) Suicidal Ideation: Current, Plan (to overdose with medications if discharged from [address] [place] [address]) Homicidal Ideation: Denies Insight/Judgement: Poor Sleep: Poorly, Difficulty falling asleep (self-report) Appetite: Good Muscle strength/Tone: Normal Gait/Station: Normal Psychiatric Treatment Plan - Problem List (3) Cocaine dependence, uncomplicated Comment: continue f/u in [facility] (4) Nicotine dependence Comment: brief discussion of smoking cessation; f/u next visit (6) Malingering Comment: Strongly suspected. (7) Human immunodeficiency virus (HIV) disease Comment: 12/05/16 - pt left w/o being seen -on Cristin Aguilar 1 tab po daily; discussed social media manager, se, and ae, adherence , benefits/goals of tx, reporting se/ae of meds, safe sex, condom use, importance of f/u and monitoring -CD4 < 200 - plan to start bactrim ds 3 x wk - pt recently started psych meds, starting ARV now, and tx for trich - will start bactrim next visit to ensure tolerating current meds (8) Hx of hemorrhoids Comment: abnormal rectal exam - f/u next visit, colon/rectal referral
[2017-06-13 17:41] VITALS: TEMP 97.9
[2017-06-13 21:28] VITALS: BP 119/81; PULSE 105
[2017-06-13] MEDS ORDERED: chlordiazePOXIDE HCL 10 MG CAPSULE PO SCH (23:00)
[2017-06-13] MEDS: THIAMINE HCL 100 MG TABLET (FP) PO SCH (23:08)
== END 2017-06-14 08:00 | disposition short-term general hospital (02) | DRG 774 ==
LOC: YASAS 18:43 → Y6N 22:54
PROVIDERS: ADMIT Internal Medicine; ATTEND Internal Medicine
PROC: HZ2ZZZZ Detoxification Services for Substance Abuse Treatment (ICD-10-PCS; principal; 2017-06-10)
DX: F10.230 Alcohol dependence with withdrawal, uncomplicated (principal); F14.20 Cocaine dependence, uncomplicated; F17.210 Nicotine dependence, cigarettes, uncomplicated; F19.24 Other psychoactive substance dependence with psychoactive substance-induced mood disorder; F32.9 Major depressive disorder, single episode, unspecified; E07.9 Disorder of thyroid, unspecified; Z21 Asymptomatic human immunodeficiency virus [HIV] infection status; Z76.5 Malingerer [conscious simulation]; Z91.5 Personal history of self-harm
CPT/HCPCS: 36415; 80053; 81003; 81015; 85027; 86593; 93005; 93010

== ENCOUNTER 2020-10-19 19:23 | Inpatient (IN) | payer OTHER ==
[2020-10-19 22:44] LABS: BASO % 1.2 % (0-2.0); EOS % 9.4 % (0-4.5); HEMATOCRIT 36.7 % (32.4-45.2); HEMOGLOBIN 12.2 GM/dL (10.7-15.3); LYMPH % 39.4 % (8-40); MCH 31.6 pg (25.7-33.7); MCHC 33.2 g/dl (32.0-36.0); MEAN CELL VOLUME 95.2 fl (80-96); MEAN PLT VOLUME 9.6 fl (7.5-11.1); PLATELET COUNT 99 K/MM3 (134-434); RBC 3.86 M/mm3 (3.60-5.2); RDW 13.5 % (11.6-15.6); WHITE BLOOD COUNT 2.7 K/mm3 (4.0-10.0)
[2020-10-19 22:55] LABS: PROTHROMBIN TIME (PATIENT) 12.1 SEC (9.7-13.0)
[2020-10-19 22:57] LABS: ACTIVATED PTT 36.6 SECONDS (25.2-36.5)
[2020-10-19 23:03] LABS: CHLORIDE 110 mmol/L (98-107); POTASSIUM 3.1 mmol/L (3.5-5.1); SODIUM 138 mmol/L (136-145)
[2020-10-19 23:05] LABS: CALCIUM 7.6 mg/dL (8.5-10.1)
[2020-10-19 23:06] LABS: ALBUMIN 2.6 g/dl (3.4-5.0); ANION GAP 5 MMOL/L (8-16); BLOOD UREA NITROGEN 10.9 mg/dL (7-18); CO2 22 mmol/L (21-32); GLUCOSE,RANDOM 110 mg/dL (74-106)
[2020-10-19 23:09] LABS: BILIRUBIN,DIRECT 0.5 mg/dL (0.0-0.2); CREATININE 0.9 mg/dL (0.55-1.3); SGOT/AST 84 U/L (15-37); SGPT/ALT 54 U/L (13-61)
[2020-10-19 23:11] LABS: BILIRUBIN,TOTAL 0.6 mg/dL (0.2-1); TOT PROT 7.7 g/dl (6.4-8.2)
[2020-10-19 23:13] LABS: ALK PHOS 126 U/L (45-117); LDH 184 U/L (84-246)
[2020-10-19] MEDS ORDERED: POTASSIUM CHLORIDE ORAL LIQUID 20 MEQ/15 ML PO ONE (23:52)
[2020-10-20 00:03] LABS: MAGNESIUM 1.9 mg/dL (1.8-2.4)
[2020-10-20] MEDS ORDERED: SODIUM CHLORIDE 1,000 ML IV STA (00:10)
[2020-10-20] MEDS ORDERED: PANTOPRAZOLE SODIUM 40 MG VIAL IVPUSH ONE (00:10)
[2020-10-20] MEDS ORDERED: PANTOPRAZOLE SODIUM 40 MG/100 ML BAG IVPB ONE (02:08)
[2020-10-20] MEDS ORDERED: POTASSIUM CHLORIDE ORAL LIQUID 20 MEQ/15 ML ONE (02:08)
[2020-10-20] MEDS ORDERED: ACETAMINOPHEN 325 MG TABLET (FP) PO PRN (02:12)
[2020-10-20] MEDS ORDERED: TUBERCULIN PPD 5 TU/0.1ML SYRINGE (IN PATIENT USE ONLY) ID ONE (02:39)
[2020-10-20] MEDS: SODIUM CHLORIDE 1,000 ML IV SCH (05:19)
[2020-10-20 07:56] LABS: BASO % 1.4 % (0-2.0); EOS % 9.7 % (0-4.5); HEMATOCRIT 36.5 % (32.4-45.2); HEMOGLOBIN 12.3 GM/dL (10.7-15.3); LYMPH % 40.4 % (8-40); MCH 32.2 pg (25.7-33.7); MCHC 33.7 g/dl (32.0-36.0); MEAN CELL VOLUME 95.8 fl (80-96); MEAN PLT VOLUME 9.6 fl (7.5-11.1); MONO % 18.1 % (3.8-10.2); NEUT % 30.4 % (42.8-82.8); PLATELET COUNT 102 K/MM3 (134-434); RBC 3.82 M/mm3 (3.60-5.2); WHITE BLOOD COUNT 2.4 K/mm3 (4.0-10.0)
[2020-10-20 08:01] LABS: ALBUMIN 2.5 g/dl (3.4-5.0); BLOOD UREA NITROGEN 9.7 mg/dL (7-18); CALCIUM 7.2 mg/dL (8.5-10.1); MAGNESIUM 1.9 mg/dL (1.8-2.4)
[2020-10-20 08:03] LABS: CREATININE 0.7 mg/dL (0.55-1.3); PHOSPHOROUS 2.5 mg/dL (2.5-4.9)
[2020-10-20 08:05] LABS: BILIRUBIN,TOTAL 0.6 mg/dL (0.2-1)
[2020-10-20 08:06] LABS: TOT PROT 7.1 g/dl (6.4-8.2)
[2020-10-20 08:39] LABS: EPI CELLS 6 /uL (0-25.1); HYALINE CASTS 1 /uL (0-3.1); PH,URINE 5.5 (5.0-8.0); URINE APPEARANCE CLEAR; URINE BACTERIA >9,000 /uL (0-1359); URINE BILIRUBIN NEGATIVE (NEGATIVE); URINE COLOR YELLOW; URINE GLUCOSE (UA) NEGATIVE (NEGATIVE); URINE KETONE NEGATIVE (NEGATIVE); URINE LEUK ESTERASE 1+ (NEGATIVE); URINE NITRITE NEGATIVE (NEGATIVE); URINE PROTEIN NEGATIVE (NEGATIVE); URINE RBC 7 /uL (0-23.9); URINE WBC 201 /uL (0-25.8)
[2020-10-20] MEDS ORDERED: PANTOPRAZOLE SODIUM 40 MG VIAL ONE (10:21)
[2020-10-20] MEDS: PANTOPRAZOLE SODIUM 40 MG VIAL IVPUSH SCH (10:23)
[2020-10-20] MEDS ORDERED: ACETAMINOPHEN 325 MG TABLET (FP) ONE (13:25)
[2020-10-20] MEDS ORDERED: ZOLPIDEM TARTRATE 5 MG TABLET PO PRN (22:00)
[2020-10-20 22:06] LABS: POTASSIUM 4.2 mmol/L (3.5-5.1)
[2020-10-20 22:08] LABS: ALBUMIN 2.5 g/dl (3.4-5.0); BLOOD UREA NITROGEN 7.9 mg/dL (7-18); CALCIUM 8.1 mg/dL (8.5-10.1)
[2020-10-20 22:11] LABS: CREATININE 0.9 mg/dL (0.55-1.3)
[2020-10-20 22:13] LABS: BILIRUBIN,TOTAL 0.6 mg/dL (0.2-1); TOT PROT 7.3 g/dl (6.4-8.2)
[2020-10-21 01:34] VITALS: BMI 29.0
[2020-10-21] MEDS ORDERED: ONDANSETRON 4 MG/2 ML VIAL IVPUSH PRN (06:40)
[2020-10-21] MEDS ORDERED: ACETAMINOPHEN 1000 MG/100 ML VIAL (NON FORMULARY) IVPB ONE (06:41)
[2020-10-21] MEDS ORDERED: MAG HYDROX/AL HYDROX/SIMETH 30 ML UNIT-DOSE CUP PO PRN (06:41)
[2020-10-21] MEDS: SODIUM CHLORIDE 1,000 ML IV SCH (07:04)
[2020-10-21 08:57] LABS: BASO % 1.2 % (0-2.0); EOS % 7.9 % (0-4.5); HEMATOCRIT 38.6 % (32.4-45.2); HEMOGLOBIN 12.9 GM/dL (10.7-15.3); LYMPH % 33.8 % (8-40); MCH 32.1 pg (25.7-33.7); MCHC 33.4 g/dl (32.0-36.0); MEAN PLT VOLUME 9.7 fl (7.5-11.1); MONO % 11.5 % (3.8-10.2); NEUT % 45.6 % (42.8-82.8); PLATELET COUNT 104 K/MM3 (134-434); RBC 4.02 M/mm3 (3.60-5.2); RDW 13.8 % (11.6-15.6); WHITE BLOOD COUNT 3.6 K/mm3 (4.0-10.0)
[2020-10-21] MEDS ORDERED: DOLUTEGRAVIR SODIUM 50 MG TABLET (NON-FORMULARY) PO SCH (10:00)
[2020-10-21] MEDS ORDERED: EMTRICITABINE/TENOFOV ALAFENAM (DESCOVY) TABLET PO SCH (10:00)
[2020-10-21] MEDS ORDERED: SERTRALINE HCL 50 MG TABLET (FP) PO SCH (10:00)
[2020-10-21] MEDS ORDERED: PT OWN MED DRAWER 7, Y5N ONE (10:56)
[2020-10-21] MEDS: PANTOPRAZOLE SODIUM 40 MG VIAL IVPUSH SCH (10:59)
[2020-10-21] MEDS ORDERED: ABACAVIR/DOLUTEGRAVIR/LAMIVUDI (TRIUMEQ) TABLET -NF PO SCH (11:00)
[2020-10-21 15:56] VITALS: BP 140/79; PULSE 79; TEMP 98.9
[2020-10-22] MEDS ORDERED: PANTOPRAZOLE 40 MG TABLET PO SCH (10:00)
[2020-10-22] MEDS ORDERED: EMTRICITABINE/TENOFOV ALAFENAM (DESCOVY) TABLET PO SCH (10:00)
[2020-10-22] MEDS ORDERED: DOLUTEGRAVIR SODIUM 50 MG TABLET (NON-FORMULARY) PO SCH (10:00)
== END 2020-10-21 18:00 | disposition home or self-care (01) | DRG 894 ==
LOC: JER 19:23 → JERBED 23:49 → J8W 10-20 18:48
PROVIDERS: ADMIT Hospitalist; ATTEND Internal Medicine
DX: D69.6 Thrombocytopenia, unspecified (principal); R04.0 Epistaxis; K62.5 Hemorrhage of anus and rectum; E87.6 Hypokalemia; Z91.14 Patient's other noncompliance with medication regimen; B19.20 Unspecified viral hepatitis C without hepatic coma; M79.10 Myalgia, unspecified site; R19.7 Diarrhea, unspecified; D70.9 Neutropenia, unspecified; F11.10 Opioid abuse, uncomplicated; R63.4 Abnormal weight loss; Z68.27 Body mass index [BMI] 27.0-27.9, adult; B20 Human immunodeficiency virus [HIV] disease
CPT/HCPCS: 36415; 71045-TC-FY; 80053; 80074; 81003; 82140; 82248; 82272; 82550; 82728; 83605; 83615; 83735; 84100; 84484; 85025; 85379; 85610; 85730; 86140; 86359; 86360; 86480; 86850; 86900; 86901; 87040; 87086; 87186; 87324; 87328; 87329; 87449; 87804; 87899; 93005; 93010; 99285-25; C9803; J0131; U0003

== ENCOUNTER 2020-11-30 09:07 | Inpatient (IN) | payer OTHER ==
[2020-11-30 10:34] VITALS: BMI 29.3
[2020-11-30] MEDS ORDERED: NICOTINE POLACRILEX 2 MG GUM BUC PRN (10:51)
[2020-11-30] MEDS ORDERED: IBUPROFEN 400 MG TABLET (FP) PO PRN (10:51)
[2020-11-30] MEDS ORDERED: ACETAMINOPHEN 325 MG TABLET (FP) PO PRN ×2 (10:51)
[2020-11-30] MEDS ORDERED: ONDANSETRON *ODT* 4 MG TABLET SL PRN (10:51)
[2020-11-30] MEDS ORDERED: MAG HYDROX/AL HYDROX/SIMETH 30 ML UNIT-DOSE CUP PO PRN (10:51)
[2020-11-30] MEDS ORDERED: cloNIDine HCL 0.1 MG TABLET PO PRN (10:51)
[2020-11-30] MEDS ORDERED: BISMUTH SUBSALICYLATE 262 MG/15 ML BTL PO PRN (10:51)
[2020-11-30] MEDS ORDERED: METHOCARBAMOL 500 MG TABLET PO PRN (10:51)
[2020-11-30] MEDS ORDERED: MAGNESIUM CITRATE 300 ML BOTTLE PO PRN (10:51)
[2020-11-30] MEDS ORDERED: MENTHOL/PHENOL 1 EACH UD MM PRN (10:51)
[2020-11-30] MEDS ORDERED: METHADONE HCL 10 MG TABLET (FOR DETOX USE ONLY) PO ONE (10:51)
[2020-11-30] MEDS ORDERED: MAGNESIUM HYDROX 2400MG/30ML ORAL SUSPENSION 30 ML CUP PO PRN (10:51)
[2020-11-30] MEDS ORDERED: LORATADINE 10 MG TABLET PO PRN (10:53)
[2020-11-30] MEDS: PRENATAL VITAMINS W/ FOLIC ACID TABLET (FP) PO SCH (11:58)
[2020-11-30] MEDS: NICOTINE 21 MG/24 HOURS TOPICAL PATCH TD SCH (12:02)
[2020-11-30] MEDS ORDERED: LORATADINE PO PRN (12:03)
[2020-11-30] MEDS: VITAMINS A AND D TOPICAL OINTMENT 60 GM TUBE TP SCH ×2 (12:03→19:25)
[2020-11-30 13:57] LABS: HEMATOCRIT 33.9 % (32.4-45.2); HEMOGLOBIN 11.3 GM/dL (10.7-15.3); MCH 31.9 pg (25.7-33.7); MCHC 33.3 g/dl (32.0-36.0); MEAN CELL VOLUME 95.9 fl (80-96); MEAN PLT VOLUME 8.7 fl (7.5-11.1); PLATELET COUNT 158 K/MM3 (134-434); RBC 3.53 M/mm3 (3.60-5.2); RDW 14.6 % (11.6-15.6); WHITE BLOOD COUNT 3.7 K/mm3 (4.0-10.0)
[2020-11-30 14:19] LABS: POTASSIUM 3.9 mmol/L (3.5-5.1)
[2020-11-30 14:21] LABS: CALCIUM 8.7 mg/dL (8.5-10.1)
[2020-11-30 14:22] LABS: ALBUMIN 2.9 g/dl (3.4-5.0)
[2020-11-30] MEDS: hydrOXYzine PAMOATE 25 MG CAPSULE (FP) PO SCH ×3 (14:23→21:42)
[2020-11-30 14:25] LABS: CREATININE 0.8 mg/dL (0.55-1.3)
[2020-11-30 14:27] LABS: BILIRUBIN,TOTAL 0.5 mg/dL (0.2-1); TOT PROT 7.4 g/dl (6.4-8.2)
[2020-11-30] MEDS: traZODone HCL 100 MG TABLET (FP) PO SCH (21:42)
[2020-11-30] MEDS: MELATONIN 5 MG TABLETS PO SCH (21:42)
[2020-11-30] MEDS: THIAMINE HCL 100 MG TABLET (FP) PO SCH (21:44)
[2020-12-01] MEDS: VITAMINS A AND D TOPICAL OINTMENT 60 GM TUBE TP SCH ×4 (01:52→19:27)
[2020-12-01] MEDS: hydrOXYzine PAMOATE 25 MG CAPSULE (FP) PO SCH ×5 (07:01→22:48)
[2020-12-01] MEDS ORDERED: METHADONE HCL 5 MG TABLET (FOR DETOX USE ONLY) ONE (09:06)
[2020-12-01] MEDS ORDERED: METHADONE HCL 10 MG TABLET (FOR DETOX USE ONLY) ONE (09:06)
[2020-12-01] MEDS ORDERED: METHADONE (DETOX) 20 MG, METHADONE (DETOX) 5 MG PO ONE (10:00)
[2020-12-01] MEDS: SULFAMETHOXAZOLE/TRIMETHOPRIM 800MG/160MG D.S. TABLET PO SCH (10:40)
[2020-12-01] MEDS: EMTRICITABINE/TENOFOV ALAFENAM (DESCOVY) TABLET PO SCH (10:40)
[2020-12-01] MEDS: DOLUTEGRAVIR SODIUM 50 MG TABLET (NON-FORMULARY) PO SCH (10:42)
[2020-12-01] MEDS: PRENATAL VITAMINS W/ FOLIC ACID TABLET (FP) PO SCH (10:42)
[2020-12-01] MEDS: NICOTINE 21 MG/24 HOURS TOPICAL PATCH TD SCH (10:42)
[2020-12-01] MEDS: MELATONIN 5 MG TABLETS PO SCH (22:48)
[2020-12-01] MEDS: THIAMINE HCL 100 MG TABLET (FP) PO SCH (22:48)
[2020-12-01] MEDS: traZODone HCL 100 MG TABLET (FP) PO SCH (22:48)
[2020-12-02] MEDS: hydrOXYzine PAMOATE 25 MG CAPSULE (FP) PO SCH ×5 (06:21→22:44)
[2020-12-02] MEDS: VITAMINS A AND D TOPICAL OINTMENT 60 GM TUBE TP SCH ×4 (06:22→18:49)
[2020-12-02] MEDS ORDERED: METHADONE HCL 10 MG TABLET (FOR DETOX USE ONLY) PO ONE (10:00)
[2020-12-02] MEDS: EMTRICITABINE/TENOFOV ALAFENAM (DESCOVY) TABLET PO SCH (10:50)
[2020-12-02] MEDS: NICOTINE 21 MG/24 HOURS TOPICAL PATCH TD SCH (10:50)
[2020-12-02] MEDS: PRENATAL VITAMINS W/ FOLIC ACID TABLET (FP) PO SCH (10:51)
[2020-12-02] MEDS: DOLUTEGRAVIR SODIUM 50 MG TABLET (NON-FORMULARY) PO SCH (10:51)
[2020-12-02] MEDS: THIAMINE HCL 100 MG TABLET (FP) PO SCH (22:44)
[2020-12-02] MEDS: traZODone HCL 100 MG TABLET (FP) PO SCH (22:44)
[2020-12-02] MEDS: MELATONIN 5 MG TABLETS PO SCH (22:45)
[2020-12-03] MEDS: VITAMINS A AND D TOPICAL OINTMENT 60 GM TUBE TP SCH ×4 (02:22→18:20)
[2020-12-03] MEDS: hydrOXYzine PAMOATE 25 MG CAPSULE (FP) PO SCH ×5 (06:57→23:35)
[2020-12-03] MEDS ORDERED: METHADONE HCL 5 MG TABLET (FOR DETOX USE ONLY) ONE (09:15)
[2020-12-03] MEDS ORDERED: METHADONE HCL 10 MG TABLET (FOR DETOX USE ONLY) ONE (09:15)
[2020-12-03] MEDS ORDERED: METHADONE (DETOX) 10 MG, METHADONE (DETOX) 5 MG PO ONE (10:00)
[2020-12-03] MEDS: EMTRICITABINE/TENOFOV ALAFENAM (DESCOVY) TABLET PO SCH (10:39)
[2020-12-03] MEDS: DOLUTEGRAVIR SODIUM 50 MG TABLET (NON-FORMULARY) PO SCH (10:40)
[2020-12-03] MEDS: PRENATAL VITAMINS W/ FOLIC ACID TABLET (FP) PO SCH (10:40)
[2020-12-03] MEDS: NICOTINE 21 MG/24 HOURS TOPICAL PATCH TD SCH (10:40)
[2020-12-03] MEDS: THIAMINE HCL 100 MG TABLET (FP) PO SCH (23:35)
[2020-12-03] MEDS: MELATONIN 5 MG TABLETS PO SCH (23:35)
[2020-12-03] MEDS: traZODone HCL 100 MG TABLET (FP) PO SCH (23:35)
[2020-12-04] MEDS: VITAMINS A AND D TOPICAL OINTMENT 60 GM TUBE TP SCH ×4 (02:45→18:37)
[2020-12-04] MEDS: hydrOXYzine PAMOATE 25 MG CAPSULE (FP) PO SCH ×5 (06:48→22:24)
[2020-12-04] MEDS ORDERED: METHADONE HCL 10 MG TABLET (FOR DETOX USE ONLY) PO ONE (10:00)
[2020-12-04] MEDS: NICOTINE 21 MG/24 HOURS TOPICAL PATCH TD SCH (11:02)
[2020-12-04] MEDS: DOLUTEGRAVIR SODIUM 50 MG TABLET (NON-FORMULARY) PO SCH (11:02)
[2020-12-04] MEDS: EMTRICITABINE/TENOFOV ALAFENAM (DESCOVY) TABLET PO SCH (11:02)
[2020-12-04] MEDS: PRENATAL VITAMINS W/ FOLIC ACID TABLET (FP) PO SCH (11:02)
[2020-12-04] MEDS: SULFAMETHOXAZOLE/TRIMETHOPRIM 800MG/160MG D.S. TABLET PO SCH (11:03)
[2020-12-04] MEDS: THIAMINE HCL 100 MG TABLET (FP) PO SCH (22:23)
[2020-12-04] MEDS: MELATONIN 5 MG TABLETS PO SCH (22:24)
[2020-12-04] MEDS: traZODone HCL 100 MG TABLET (FP) PO SCH (22:24)
[2020-12-05] MEDS: VITAMINS A AND D TOPICAL OINTMENT 60 GM TUBE TP SCH ×3 (00:21→13:54)
[2020-12-05] MEDS ORDERED: METHADONE HCL 5 MG TABLET (FOR DETOX USE ONLY) PO ONE (06:00)
[2020-12-05] MEDS: hydrOXYzine PAMOATE 25 MG CAPSULE (FP) PO SCH ×3 (06:23→14:49)
[2020-12-05] MEDS: SULFAMETHOXAZOLE/TRIMETHOPRIM 800MG/160MG D.S. TABLET PO SCH (10:54)
[2020-12-05] MEDS: PRENATAL VITAMINS W/ FOLIC ACID TABLET (FP) PO SCH (10:54)
[2020-12-05] MEDS: EMTRICITABINE/TENOFOV ALAFENAM (DESCOVY) TABLET PO SCH (10:55)
[2020-12-05] MEDS: NICOTINE 21 MG/24 HOURS TOPICAL PATCH TD SCH (10:55)
[2020-12-05] MEDS: DOLUTEGRAVIR SODIUM 50 MG TABLET (NON-FORMULARY) PO SCH (10:56)
[2020-12-05 15:24] VITALS: BP 115/77; PULSE 85; TEMP 96.2
== END 2020-12-05 15:17 | disposition other institution (70) | DRG 773 ==
LOC: YASAS 09:07 → Y6N 10:40
PROVIDERS: ADMIT Allergy & Immunology; ATTEND Allergy & Immunology
PROC: HZ2ZZZZ Detoxification Services for Substance Abuse Treatment (ICD-10-PCS; principal; 2020-11-30)
DX: F11.23 Opioid dependence with withdrawal (principal); F10.20 Alcohol dependence, uncomplicated; F14.20 Cocaine dependence, uncomplicated; F17.210 Nicotine dependence, cigarettes, uncomplicated; F19.24 Other psychoactive substance dependence with psychoactive substance-induced mood disorder; F19.259 Other psychoactive substance dependence with psychoactive substance-induced psychotic disorder, unspecified; Z21 Asymptomatic human immunodeficiency virus [HIV] infection status; J30.2 Other seasonal allergic rhinitis; B18.2 Chronic viral hepatitis C; R74.01 Elevation of levels of liver transaminase levels; K64.8 Other hemorrhoids; Z62.810 Personal history of physical and sexual abuse in childhood; Z86.19 Personal history of other infectious and parasitic diseases; Z91.410 Personal history of adult physical and sexual abuse; Z91.14 Patient's other noncompliance with medication regimen
CPT/HCPCS: 36415; 80053; 81025; 85027; 86780; C9803; J0735; Q0162; U0003

== ENCOUNTER 2020-12-05 15:21 | Inpatient (IN) | payer OTHER ==
[2020-12-05] MEDS ORDERED: guaiFENesin 200 MG/10 ML 10 ML UNIT-DOSE CUPS PO PRN (19:39)
[2020-12-05] MEDS ORDERED: LOPERAMIDE HCL 2 MG CAPSULE PO PRN (19:39)
[2020-12-05] MEDS ORDERED: IBUPROFEN 400 MG TABLET (FP) PO PRN (19:39)
[2020-12-05] MEDS ORDERED: P-EPHED 60MG/TRIPROLIDI 2.5MG TABLET PO PRN (19:39)
[2020-12-05] MEDS ORDERED: MAG HYDROX/AL HYDROX/SIMETH 30 ML UNIT-DOSE CUP PO PRN (19:39)
[2020-12-05] MEDS ORDERED: MENTHOL/PHENOL 1 EACH UD MM PRN (19:39)
[2020-12-05] MEDS ORDERED: LORATADINE 10 MG TABLET PO PRN (19:39)
[2020-12-05] MEDS ORDERED: ACETAMINOPHEN 325 MG TABLET (FP) PO PRN (19:39)
[2020-12-05] MEDS: MELATONIN 5 MG TABLETS PO SCH (21:03)
[2020-12-05] MEDS: THIAMINE HCL 100 MG TABLET (FP) PO SCH (21:03)
[2020-12-05] MEDS: traZODone HCL 100 MG TABLET (FP) PO SCH (21:04)
[2020-12-06] MEDS: SULFAMETHOXAZOLE/TRIMETHOPRIM 800MG/160MG D.S. TABLET PO SCH (09:55)
[2020-12-06] MEDS: PRENATAL VITAMINS W/ FOLIC ACID TABLET (FP) PO SCH (09:55)
[2020-12-06] MEDS ORDERED: PT OWN MED DRAWER 7, Y5N ONE (09:56)
[2020-12-06] MEDS: DOLUTEGRAVIR SODIUM 50 MG TABLET (NON-FORMULARY) PO SCH (10:33)
[2020-12-06] MEDS: EMTRICITABINE/TENOFOV ALAFENAM (DESCOVY) TABLET PO SCH (10:33)
[2020-12-06] MEDS: traZODone HCL 100 MG TABLET (FP) PO SCH (21:26)
[2020-12-06] MEDS: MELATONIN 5 MG TABLETS PO SCH (21:26)
[2020-12-06] MEDS: THIAMINE HCL 100 MG TABLET (FP) PO SCH (21:26)
[2020-12-07] MEDS: PRENATAL VITAMINS W/ FOLIC ACID TABLET (FP) PO SCH (09:40)
[2020-12-07] MEDS: DOLUTEGRAVIR SODIUM 50 MG TABLET (NON-FORMULARY) PO SCH (09:40)
[2020-12-07] MEDS: EMTRICITABINE/TENOFOV ALAFENAM (DESCOVY) TABLET PO SCH (09:40)
[2020-12-07] MEDS: THIAMINE HCL 100 MG TABLET (FP) PO SCH (21:00)
[2020-12-07] MEDS: MELATONIN 5 MG TABLETS PO SCH (21:00)
[2020-12-07] MEDS: traZODone HCL 100 MG TABLET (FP) PO SCH (21:00)
[2020-12-08] MEDS: SULFAMETHOXAZOLE/TRIMETHOPRIM 800MG/160MG D.S. TABLET PO SCH (09:54)
[2020-12-08] MEDS: PRENATAL VITAMINS W/ FOLIC ACID TABLET (FP) PO SCH (09:55)
[2020-12-08] MEDS: EMTRICITABINE/TENOFOV ALAFENAM (DESCOVY) TABLET PO SCH (09:55)
[2020-12-08] MEDS: DOLUTEGRAVIR SODIUM 50 MG TABLET (NON-FORMULARY) PO SCH (09:55)
[2020-12-08] MEDS: MAGNESIUM HYDROX 2400MG/30ML ORAL SUSPENSION 30 ML CUP PO PRN (11:00)
[2020-12-08] MEDS: MAGNESIUM CITRATE 300 ML BOTTLE PO PRN (15:54)
[2020-12-08] MEDS: traZODone HCL 100 MG TABLET (FP) PO SCH (21:27)
[2020-12-08] MEDS: THIAMINE HCL 100 MG TABLET (FP) PO SCH (21:27)
[2020-12-08] MEDS: MELATONIN 5 MG TABLETS PO SCH (21:29)
[2020-12-09] MEDS: PRENATAL VITAMINS W/ FOLIC ACID TABLET (FP) PO SCH (09:50)
[2020-12-09] MEDS: DOLUTEGRAVIR SODIUM 50 MG TABLET (NON-FORMULARY) PO SCH (09:50)
[2020-12-09] MEDS: EMTRICITABINE/TENOFOV ALAFENAM (DESCOVY) TABLET PO SCH (09:50)
[2020-12-09] MEDS: MELATONIN 5 MG TABLETS PO SCH (21:52)
[2020-12-09] MEDS: THIAMINE HCL 100 MG TABLET (FP) PO SCH (21:52)
[2020-12-09] MEDS: traZODone HCL 100 MG TABLET (FP) PO SCH (21:52)
[2020-12-10] MEDS: EMTRICITABINE/TENOFOV ALAFENAM (DESCOVY) TABLET PO SCH (09:35)
[2020-12-10] MEDS: PRENATAL VITAMINS W/ FOLIC ACID TABLET (FP) PO SCH (09:36)
[2020-12-10] MEDS: DOLUTEGRAVIR SODIUM 50 MG TABLET (NON-FORMULARY) PO SCH (09:36)
[2020-12-10] MEDS: MAGNESIUM HYDROX 2400MG/30ML ORAL SUSPENSION 30 ML CUP PO PRN (09:55)
[2020-12-10] MEDS: MAGNESIUM CITRATE 300 ML BOTTLE PO PRN (15:56)
[2020-12-10] MEDS: traZODone HCL 100 MG TABLET (FP) PO SCH (22:17)
[2020-12-10] MEDS: MELATONIN 5 MG TABLETS PO SCH (22:17)
[2020-12-10] MEDS: THIAMINE HCL 100 MG TABLET (FP) PO SCH (22:17)
[2020-12-11] MEDS: PRENATAL VITAMINS W/ FOLIC ACID TABLET (FP) PO SCH (09:50)
[2020-12-11] MEDS: SULFAMETHOXAZOLE/TRIMETHOPRIM 800MG/160MG D.S. TABLET PO SCH (09:50)
[2020-12-11] MEDS: DOLUTEGRAVIR SODIUM 50 MG TABLET (NON-FORMULARY) PO SCH (09:51)
[2020-12-11] MEDS: EMTRICITABINE/TENOFOV ALAFENAM (DESCOVY) TABLET PO SCH (09:51)
[2020-12-11] MEDS ORDERED: MAGNESIUM CITRATE 300 ML BOTTLE PO ONE (12:00)
[2020-12-11] MEDS: THIAMINE HCL 100 MG TABLET (FP) PO SCH (21:18)
[2020-12-11] MEDS: traZODone HCL 100 MG TABLET (FP) PO SCH (21:18)
[2020-12-11] MEDS: MELATONIN 5 MG TABLETS PO SCH (21:18)
[2020-12-12] MEDS: PRENATAL VITAMINS W/ FOLIC ACID TABLET (FP) PO SCH (09:44)
[2020-12-12] MEDS: EMTRICITABINE/TENOFOV ALAFENAM (DESCOVY) TABLET PO SCH (09:44)
[2020-12-12] MEDS: DOLUTEGRAVIR SODIUM 50 MG TABLET (NON-FORMULARY) PO SCH (09:45)
[2020-12-12] MEDS: DOCUSATE SODIUM 100 MG CAPSULE (FP) PO ONE ×2 (12:13→12:28)
[2020-12-12] MEDS: traZODone HCL 100 MG TABLET (FP) PO SCH (21:19)
[2020-12-12] MEDS: THIAMINE HCL 100 MG TABLET (FP) PO SCH (21:19)
[2020-12-12] MEDS: MELATONIN 5 MG TABLETS PO SCH (21:19)
[2020-12-12] MEDS: LACTULOSE 20 GM/30 ML UDC (FOR ORAL USE ONLY) PO SCH (21:21)
[2020-12-13] MEDS: LACTULOSE 20 GM/30 ML UDC (FOR ORAL USE ONLY) PO SCH ×2 (10:03→22:45)
[2020-12-13] MEDS: EMTRICITABINE/TENOFOV ALAFENAM (DESCOVY) TABLET PO SCH (10:03)
[2020-12-13] MEDS: SULFAMETHOXAZOLE/TRIMETHOPRIM 800MG/160MG D.S. TABLET PO SCH (10:03)
[2020-12-13] MEDS: DOLUTEGRAVIR SODIUM 50 MG TABLET (NON-FORMULARY) PO SCH (10:04)
[2020-12-13] MEDS: PRENATAL VITAMINS W/ FOLIC ACID TABLET (FP) PO SCH (10:04)
[2020-12-13] MEDS: THIAMINE HCL 100 MG TABLET (FP) PO SCH (22:45)
[2020-12-13] MEDS: MELATONIN 5 MG TABLETS PO SCH (22:45)
[2020-12-13] MEDS: traZODone HCL 100 MG TABLET (FP) PO SCH (22:45)
[2020-12-14 07:13] VITALS: BP 125/81; PULSE 73; TEMP 97.9
[2020-12-14] MEDS: PRENATAL VITAMINS W/ FOLIC ACID TABLET (FP) PO SCH (09:24)
[2020-12-14] MEDS: EMTRICITABINE/TENOFOV ALAFENAM (DESCOVY) TABLET PO SCH (09:24)
[2020-12-14] MEDS: DOLUTEGRAVIR SODIUM 50 MG TABLET (NON-FORMULARY) PO SCH (09:24)
[2020-12-14] MEDS: LACTULOSE 20 GM/30 ML UDC (FOR ORAL USE ONLY) PO SCH (09:25)
== END 2020-12-14 09:35 | disposition home or self-care (01) | DRG 772 ==
LOC: YASAS 15:21 → Y3W 15:23
PROVIDERS: ADMIT Allergy & Immunology; ATTEND Allergy & Immunology
PROC: HZ42ZZZ Group Counseling for Substance Abuse Treatment, Cognitive-Behavioral (ICD-10-PCS; principal; 2020-12-05)
DX: F11.20 Opioid dependence, uncomplicated (principal); F10.20 Alcohol dependence, uncomplicated; F14.20 Cocaine dependence, uncomplicated; F17.210 Nicotine dependence, cigarettes, uncomplicated; K59.00 Constipation, unspecified
CPT/HCPCS: C9803; U0003

== ENCOUNTER 2021-01-30 15:01 | Inpatient (IN) | payer OTHER ==
[2021-01-30 15:47] VITALS: BMI 27.4
[2021-01-30] MEDS ORDERED: MAGNESIUM CITRATE 300 ML BOTTLE PO PRN (17:30)
[2021-01-30] MEDS ORDERED: BISMUTH SUBSALICYLATE 524 MG/30 ML PO PRN (17:30)
[2021-01-30] MEDS ORDERED: METHOCARBAMOL 500 MG TABLET PO PRN (17:30)
[2021-01-30] MEDS ORDERED: MAGNESIUM HYDROX 2400MG/30ML ORAL SUSPENSION 30 ML CUP PO PRN (17:30)
[2021-01-30] MEDS ORDERED: MAG HYDROX/AL HYDROX/SIMETH 30 ML UNIT-DOSE CUP PO PRN (17:30)
[2021-01-30] MEDS ORDERED: IBUPROFEN 400 MG TABLET (FP) PO PRN (17:30)
[2021-01-30] MEDS ORDERED: ACETAMINOPHEN 325 MG TABLET (FP) PO PRN ×2 (17:30)
[2021-01-30] MEDS ORDERED: NICOTINE POLACRILEX 2 MG GUM BUC PRN (17:30)
[2021-01-30] MEDS ORDERED: MENTHOL/PHENOL 1 EACH UD MM PRN (17:30)
[2021-01-30] MEDS ORDERED: cloNIDine HCL 0.1 MG TABLET PO PRN (17:31)
[2021-01-30] MEDS ORDERED: diphenhydrAMINE HCL 25 MG CAPSULE (FP) PO ONE (17:32)
[2021-01-30] MEDS ORDERED: METHADONE HCL 5 MG TABLET (FOR DETOX USE ONLY) PO ONE (18:45)
[2021-01-30] MEDS: EMTRICITABINE/TENOFOV ALAFENAM (DESCOVY) TABLET PO SCH (23:44)
[2021-01-30] MEDS: DOLUTEGRAVIR SODIUM 50 MG TABLET (NON-FORMULARY) PO SCH (23:44)
[2021-01-31] MEDS: THIAMINE HCL 100 MG TABLET (FP) PO SCH (00:07)
[2021-01-31] MEDS: MELATONIN 5 MG TABLETS PO SCH (00:07)
[2021-01-31] MEDS: EMTRICITABINE/TENOFOV ALAFENAM (DESCOVY) TABLET PO SCH (07:58)
[2021-01-31] MEDS: DOLUTEGRAVIR SODIUM 50 MG TABLET (NON-FORMULARY) PO SCH (07:59)
[2021-01-31] MEDS ORDERED: METHADONE HCL 10 MG TABLET (FOR DETOX USE ONLY) PO ONE (10:00)
[2021-01-31] MEDS: SULFAMETHOXAZOLE/TRIMETHOPRIM 800MG/160MG D.S. TABLET PO SCH (10:38)
[2021-01-31] MEDS: PRENATAL VITAMINS W/ FOLIC ACID TABLET (FP) PO SCH (10:39)
[2021-02-01] MEDS: MELATONIN 5 MG TABLETS PO SCH ×2 (06:36→23:12)
[2021-02-01] MEDS: traZODone HCL 100 MG TABLET (FP) PO SCH ×2 (06:36→23:12)
[2021-02-01] MEDS: THIAMINE HCL 100 MG TABLET (FP) PO SCH ×2 (06:37→23:12)
[2021-02-01] MEDS ORDERED: cloNIDine HCL 0.1 MG TABLET PO PRN (08:56)
[2021-02-01] MEDS ORDERED: METHADONE HCL 5 MG TABLET (FOR DETOX USE ONLY) PO ONE (10:00)
[2021-02-01] MEDS: EMTRICITABINE/TENOFOV ALAFENAM (DESCOVY) TABLET PO SCH (10:42)
[2021-02-01] MEDS: PRENATAL VITAMINS W/ FOLIC ACID TABLET (FP) PO SCH (10:42)
[2021-02-01] MEDS: DOLUTEGRAVIR SODIUM 50 MG TABLET (NON-FORMULARY) PO SCH (10:43)
[2021-02-02] MEDS ORDERED: METHADONE HCL 5 MG TABLET (FOR DETOX USE ONLY) PO ONE (05:00)
[2021-02-02] MEDS: DOLUTEGRAVIR SODIUM 50 MG TABLET (NON-FORMULARY) PO SCH (08:06)
[2021-02-02] MEDS: EMTRICITABINE/TENOFOV ALAFENAM (DESCOVY) TABLET PO SCH (08:06)
[2021-02-02 10:07] LABS: SARS-CoV-2 NAA Not Detected (Not Detected)
[2021-02-02] MEDS: SULFAMETHOXAZOLE/TRIMETHOPRIM 800MG/160MG D.S. TABLET PO SCH (11:18)
[2021-02-02] MEDS: PRENATAL VITAMINS W/ FOLIC ACID TABLET (FP) PO SCH (11:19)
[2021-02-02 11:24] VITALS: BP 135/87; PULSE 117; TEMP 98
== END 2021-02-02 13:57 | disposition home or self-care (01) | DRG 773 ==
LOC: YASAS 15:01 → Y3N 18:02 → Y6N 18:32
PROVIDERS: ADMIT Allergy & Immunology; ATTEND Allergy & Immunology
PROC: HZ2ZZZZ Detoxification Services for Substance Abuse Treatment (ICD-10-PCS; principal; 2021-01-30)
DX: F11.23 Opioid dependence with withdrawal (principal); F10.20 Alcohol dependence, uncomplicated; F14.20 Cocaine dependence, uncomplicated; F17.210 Nicotine dependence, cigarettes, uncomplicated; U07.1 COVID-19; Z21 Asymptomatic human immunodeficiency virus [HIV] infection status; F19.282 Other psychoactive substance dependence with psychoactive substance-induced sleep disorder; F19.24 Other psychoactive substance dependence with psychoactive substance-induced mood disorder; B18.2 Chronic viral hepatitis C; Z62.810 Personal history of physical and sexual abuse in childhood; Z91.410 Personal history of adult physical and sexual abuse; Z87.01 Personal history of pneumonia (recurrent); Z56.0 Unemployment, unspecified; Z59.0 Homelessness
CPT/HCPCS: 36415; 70450-TC; 71046-TC-FY; 71250-TC; 80053; 81025; 82962; 84703; 85025; 86359; 86360; 87040; 93005; 93010; C9803; J0735; U0003; U0005

== ENCOUNTER 2021-01-31 15:10 | Emergency (ER) | payer OTHER ==
[2021-01-31 15:29] VITALS: BMI 26.6
[2021-01-31] MEDS ORDERED: BAMLANIVIMAB 700 MG, ETESEVIMAB 1,400 MG in SODIUM CHLORIDE 250 ML IVPB ONE (16:13)
[2021-01-31] MEDS ORDERED: ACETAMINOPHEN 500 MG TABLET (FP) PO ONE (16:21)
[2021-01-31] MEDS ORDERED: ACETAMINOPHEN 325 MG TABLET (FP) ONE (16:42)
[2021-01-31 23:53] VITALS: TEMP 98.3
[2021-02-01 02:58] VITALS: BP 122/76; PULSE 74
== END 2021-02-01 03:09 | disposition home or self-care (01) ==
LOC: JER 15:10
DX: U07.1 COVID-19 (principal)
CPT/HCPCS: 99284-25; M0239; Q0239; Q0245

== ENCOUNTER 2021-05-10 10:28 | Inpatient (IN) | payer OTHER ==
[2021-05-10] MEDS ORDERED: ONDANSETRON *ODT* 4 MG TABLET SL PRN (13:49)
[2021-05-10] MEDS ORDERED: clonazePAM 0.5 MG ODT TABLETS SL PRN (13:49)
[2021-05-10] MEDS ORDERED: IBUPROFEN 400 MG TABLET (FP) PO PRN (13:49)
[2021-05-10] MEDS ORDERED: hydrOXYzine PAMOATE 25 MG CAPSULE (FP) PO PRN (13:49)
[2021-05-10] MEDS ORDERED: BISMUTH SUBSALICYLATE 524 MG/30 ML PO PRN (13:49)
[2021-05-10] MEDS ORDERED: ACETAMINOPHEN 325 MG TABLET (FP) PO PRN ×2 (13:49)
[2021-05-10] MEDS ORDERED: MAGNESIUM CITRATE 300 ML BOTTLE PO PRN (13:49)
[2021-05-10] MEDS ORDERED: NICOTINE 10 MG CARTRIDGE (INHALER) IH PRN (13:49)
[2021-05-10] MEDS ORDERED: MAGNESIUM HYDROX 2400MG/30ML ORAL SUSPENSION 30 ML CUP PO PRN (13:49)
[2021-05-10] MEDS ORDERED: MAG HYDROX/AL HYDROX/SIMETH 30 ML UNIT-DOSE CUP PO PRN (13:49)
[2021-05-10] MEDS ORDERED: cloNIDine HCL 0.1 MG TABLET PO PRN (13:49)
[2021-05-10] MEDS ORDERED: NICOTINE POLACRILEX 2 MG GUM BUC PRN (13:49)
[2021-05-10] MEDS ORDERED: METHOCARBAMOL 500 MG TABLET PO PRN (13:49)
[2021-05-10] MEDS ORDERED: MENTHOL/PHENOL 1 EACH UD MM PRN (13:49)
[2021-05-10] MEDS ORDERED: methaDONE HCL 10 MG TABLET (FOR DETOX USE ONLY) PO ONE (14:30)
[2021-05-10 15:48] LABS: HEMATOCRIT 32.6 % (32.4-45.2); HEMOGLOBIN 10.8 GM/dL (10.7-15.3); MCH 29.5 pg (25.7-33.7); MEAN CELL VOLUME 89.6 fl (80-96); MEAN PLT VOLUME 8.7 fl (7.5-11.1); PLATELET COUNT 144 10^3/uL (134-434); RBC 3.64 M/mm3 (3.60-5.2); RDW 13.5 % (11.6-15.6); WHITE BLOOD COUNT 3.5 K/mm3 (4.0-10.0)
[2021-05-10 15:54] LABS: BLOOD UREA NITROGEN 17.4 mg/dL (7-18)
[2021-05-10 15:57] LABS: CREATININE 1.1 mg/dL (0.55-1.3)
[2021-05-10 15:59] LABS: TOT PROT 8.9 g/dl (6.4-8.2)
[2021-05-10 16:07] LABS: BILIRUBIN,TOTAL 0.7 mg/dL (0.2-1)
[2021-05-10] MEDS: MELATONIN 5 MG TABLETS PO SCH (23:20)
[2021-05-10] MEDS: THIAMINE HCL 100 MG TABLET (FP) PO SCH (23:21)
[2021-05-11] MEDS ORDERED: methaDONE HCL 10 MG TABLET (FOR DETOX USE ONLY) ONE (09:10)
[2021-05-11] MEDS: PRENATAL VITAMINS W/ FOLIC ACID TABLET (FP) PO SCH (10:30)
[2021-05-11] MEDS: NICOTINE 21 MG/24 HOURS TOPICAL PATCH TD SCH (10:30)
[2021-05-11] MEDS: MELATONIN 5 MG TABLETS PO SCH (23:46)
[2021-05-11] MEDS: THIAMINE HCL 100 MG TABLET (FP) PO SCH (23:46)
[2021-05-12] MEDS ORDERED: methaDONE HCL 10 MG TABLET (FOR DETOX USE ONLY) PO ONE (10:00)
[2021-05-12] MEDS: PRENATAL VITAMINS W/ FOLIC ACID TABLET (FP) PO SCH (10:21)
[2021-05-12] MEDS: NICOTINE 21 MG/24 HOURS TOPICAL PATCH TD SCH (10:22)
[2021-05-12] MEDS ORDERED: PNEUMOC 13-VAL CONJ-DIP CRM/PF 0.5 ML DISP.SYRIN IM ONE (12:00)
[2021-05-12] MEDS: THIAMINE HCL 100 MG TABLET (FP) PO SCH (22:33)
[2021-05-12] MEDS: MELATONIN 5 MG TABLETS PO SCH (22:33)
[2021-05-13] MEDS ORDERED: methaDONE HCL 10 MG TABLET (FOR DETOX USE ONLY) ONE (09:04)
[2021-05-13] MEDS: PRENATAL VITAMINS W/ FOLIC ACID TABLET (FP) PO SCH (10:37)
[2021-05-13] MEDS: NICOTINE 21 MG/24 HOURS TOPICAL PATCH TD SCH (10:37)
[2021-05-13] MEDS: THIAMINE HCL 100 MG TABLET (FP) PO SCH (22:55)
[2021-05-13] MEDS: MELATONIN 5 MG TABLETS PO SCH (22:55)
[2021-05-14] MEDS ORDERED: methaDONE HCL 10 MG TABLET (FOR DETOX USE ONLY) PO ONE (10:00)
[2021-05-14] MEDS: NICOTINE 21 MG/24 HOURS TOPICAL PATCH TD SCH (10:11)
[2021-05-14] MEDS: PRENATAL VITAMINS W/ FOLIC ACID TABLET (FP) PO SCH (10:11)
[2021-05-14 13:59] LABS: SODIUM 134 mmol/L (136-145)
[2021-05-14 14:21] LABS: SGOT/AST 96 U/L (15-37)
[2021-05-14] MEDS: MELATONIN 5 MG TABLETS PO SCH (22:17)
[2021-05-14] MEDS: THIAMINE HCL 100 MG TABLET (FP) PO SCH (22:17)
[2021-05-15 08:51] VITALS: BP 132/64; PULSE 68; TEMP 97.3
== END 2021-05-15 09:04 | disposition home or self-care (01) | DRG 773 ==
LOC: YASAS 10:28 → Y3N 21:37
PROVIDERS: ADMIT Allergy & Immunology; ATTEND Allergy & Immunology
PROC: HZ2ZZZZ Detoxification Services for Substance Abuse Treatment (ICD-10-PCS; principal; 2021-05-10)
DX: F11.23 Opioid dependence with withdrawal (principal); F10.20 Alcohol dependence, uncomplicated; F14.20 Cocaine dependence, uncomplicated; F17.210 Nicotine dependence, cigarettes, uncomplicated; F10.282 Alcohol dependence with alcohol-induced sleep disorder; F19.282 Other psychoactive substance dependence with psychoactive substance-induced sleep disorder; F19.24 Other psychoactive substance dependence with psychoactive substance-induced mood disorder; F41.9 Anxiety disorder, unspecified; F32.9 Major depressive disorder, single episode, unspecified; F60.9 Personality disorder, unspecified; Z21 Asymptomatic human immunodeficiency virus [HIV] infection status; E87.1 Hypo-osmolality and hyponatremia; E88.09 Other disorders of plasma-protein metabolism, not elsewhere classified; B18.2 Chronic viral hepatitis C; R74.01 Elevation of levels of liver transaminase levels; R63.4 Abnormal weight loss; Z68.21 Body mass index [BMI] 21.0-21.9, adult; Z86.16 Personal history of COVID-19
CPT/HCPCS: 36415; 80053; 81025; 84295; 84450; 85027; 86780; 90670; C9803; U0003; U0005

== ENCOUNTER 2022-03-19 11:19 | Emergency (ER) | payer OTHER ==
[2022-03-19 11:52] VITALS: BP 134/80; PULSE 65; TEMP 98.6; BMI 32.3
[2022-03-19] MEDS ORDERED: IBUPROFEN 600 MG TABLET (FP) PO ONE ×2 (13:22→13:31)
[2022-03-19] MEDS ORDERED: METHOCARBAMOL 500 MG TABLET PO ONE (13:22)
[2022-03-19] MEDS ORDERED: METHOCARBAMOL 500 MG TABLET ONE (13:31)
[2022-03-19] MEDS ORDERED: DIPHTH,PERTUSS(ACELL),TET 0.5 ML DISP.SYRIN IM ONE ×2 (13:48→14:20)
== END 2022-03-19 14:28 | disposition home or self-care (01) ==
LOC: JERFT 11:19 → JER 11:19 → JERFT 14:28
PROC: 3E0234Z Introduction of Serum, Toxoid and Vaccine into Muscle, Percutaneous Approach (ICD-10-PCS; principal; 2022-03-19)
DX: M25.552 Pain in left hip (principal); M25.522 Pain in left elbow
CPT/HCPCS: 73070-TC-LT-FY; 73502-TC-LT-FY; 90471; 90715; 96374; 96375; 99284-25